=== PATIENT | female | born 1960 | race Caucasian/White ===

== ENCOUNTER 2023-08-27 09:48 | Outpatient (AMB) | payer BC, SELFPAY ==
--- NOTE | 2023-08-27 10:15 | A.SPINEOV_ITS ---
Intake Intake Visit Reasons: cervical radiculopathy Intake Note: Ms Doll is here today c/o upper back pain and burning sensation. MRI done @ [facility]/brought disc. Building Certifier Required: No Assessment & Plan Assessment & Plan (1) Cervical radiculopathy: Code(s): M54.12 - Radiculopathy, cervical region Plan Dear colleague, Thank you for referring Ivonne to our office today. She is a pleasant 62-year-old female who comes in today with a chief complaint of a burning pain across the back of her neck accompanied by left arm shooting pains. She reports that this started 2-3 years ago and has become progressively worse over the course of last year. She reports that with positional changes especially raising her left arm above her head increases her pain. She reports no alleviating factors other than positioning changes when lying down. She does not endorse any numbness or tingling associated with her left arm shooting pain. She states that the pain has been slow in onset, and came on over the course of the last 2- 3 years. 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 She reports that she has been to pain management for epidural cortisone injections which she felt she got some relief for about 2 weeks from. She reports she has taken many lrai-cjb-vzqgzfx medications including Tylenol and ibuprofen with only minimal relief. PMH: Osteoarthritis, high blood pressure, neuropathic pain of the right foot. Social hx: Patient does not smoke, reports no substance use. Medications: Cyclobenzaprine, gabapentin, duloxetine, Irbesartan, celecoxib. Allergies: NKDA. Physical exam: Ivonne has 5/5 strength in upper and lower extremities. Sensation slightly diminished in the posterior neck / upper trapezius. Rest of sensation is grossly intact. No myelopathic reflexes. (-) Spurlings, (-) Lhermitte's. She is able to ambulate well, rises from a seated position without difficulty. Imaging review: MRI 2022 completed at [place] of the cervical spine shows slightly increased degeneration of the cervical disc space between C5-6 when compared to the MRI from 201920. Grade 1 spondylolisthesis at C5, moderate-severe multilevel left-sided foraminal stenosis, worst at C4-5 and C6-7. Impression: Ivonne is a 62-year-old female who comes in today with a chief complaint of 2-3 years of posterior neck pain/burning/numbness accompanied by left-sided arm shooting pain which go down her posterior deltoid over the poste rior elbow terminating in the forearm. The sounds like a classic left-sided cervical radiculopathy, likely due to left-sided foraminal stenosis. She states that she has attempted to take many rygr-pyf-ajxvkuk remedies and prescription medications to address this pain. She has also sought treatment from pain management. She did have some success with the C5 epidural injection which helped produce pain relief for about 2 weeks. She states that at this time her symptoms are not waking her from sleep or impeding with her ability to work. She also reports that she is able to complete all of her ADLs engage in meaningful activities such as gardening. After reviewing her MRI and discussing the potential disease progress Ivonne would like to assess her options, potentially continue to follow-up with pain management for further injections, and make a follow-up appointment in about 6 months to reassess how she feels. For the time being I will order a set of cervical x-rays to review prior to her follow-up appointment. Thank you for allowing us to care for your patient. The total time spent with this visit with this patient was 45 minutes reviewing history, physical exam, MRI imaging review, and implementation of treatment plan or further diagnostic testing John Alvarez MD,PhD [facility] Orders: Orders XR cervical spine 4V Today M54.2 - Cervicalgia Coding Level of Care Code New Pt Level 4 (50301) Diagnoses Cervical radiculopathy M54.12
== END 2023-08-27 11:24 | disposition home or self-care (01) ==
PROVIDERS: PCP Family Medicine; Referring Provider Family Medicine; Visit Provider Physician Assistant
DX: M54.12 Radiculopathy, cervical region (principal)
CPT/HCPCS: 99204

== ENCOUNTER 2023-08-27 09:48 | Outpatient (REF) | payer BC, SELFPAY ==
--- NOTE | ~2023-08-27 | XR_ITS ---
EXAMINATION: XR CERVICAL SPINE CLINICAL INFORMATION: Cervicalgia. COMPARISON: None available. TECHNIQUE: 3 views of the cervical spine were obtained, including flexion and extension views. FINDINGS: There is a 0.4 cm of anterolisthesis of C4 on C5, that remains stable on flexion view, and decreases on extension view. Otherwise, anatomic alignment. No evidence of acute compression deformity. Moderate to severe intervertebral disc height loss from C5 through C7. Prominent facet arthropathy and uncovertebral hypertrophy more noticeable in the mid to lower cervical spine. Incomplete characterization of central canal stenosis and neural foraminal encroachment in the absence of oblique views. No prevertebral soft tissue thickening. Lung apices are clear. XR/XR cervical spine 4V IMPRESSION: 1. There is 0.4 cm of anterolisthesis of C4 on C5 which remains stable on flexion view and decreases on extension view. No acute compression deformity. 2. Moderate to severe lower cervical spondylosis.
== END 2023-08-27 09:49 | disposition home or self-care (01) ==
LOC: HO.HOSX 09:48
PROVIDERS: PCP Family Medicine; Referring Provider Family Medicine; Visit Provider Physician Assistant
DX: M54.12 Radiculopathy, cervical region (principal)
CPT/HCPCS: 72050